=== PATIENT | male | born 1980 | race Caucasian/White ===

== ENCOUNTER 2019-09-05 09:56 | Emergency (ER) | payer OTHER ==
[~2019-09-05] VITALS: Ht 188 cm; Wt 73.9 kg
[2019-09-05 10:05] VITALS: Ht 188 cm; Wt 73.9 kg
[2019-09-05 11:03] VITALS: BP 120/74
== END 2019-09-05 11:03 | disposition home or self-care (01) ==
LOC: ED 09:56
DX: H60.92 Unspecified otitis externa, left ear (principal)
CPT/HCPCS: 82962